=== PATIENT | male | born 1955 | race Caucasian/White ===

== ENCOUNTER 2021-05-05 12:46 | Emergency (ER) | payer OTHER ==
[2021-05-05 13:33] VITALS: TEMP 97.9
--- NOTE | 2021-05-05 14:12 | XR ---
EXAMINATION TYPE: XR ankle complete LT DATE OF EXAM: 05/05/2021 COMPARISON: NONE HISTORY: Pain FINDINGS: Three views of the ankle demonstrate the ankle mortise to be intact and symmetric. The joint spaces are preserved. The osseous structures are intact. Tiny bony density inferior to the medial malleolu s. Small plantar calcaneal spur. Soft tissue swelling laterally. IMPRESSION: 1. Tiny bony density adjacent the medial malleolus is felt to be most likely chronic correlate with p oint tenderness. 2. There appears to be soft tissue edema laterally with no definite acute fracture. Linear density wi thin the soft tissues could be related to a tiny foreign body.
--- NOTE | 2021-05-05 15:59 | ED ---
Lower Extremity Injury HPI - General Chief Complaint: Extremity Injury, Lower Stated Complaint: [facility] - lt ankle injury Time Seen by Provider: 05/05/21 15:27 Source: patient Mode of arrival: ambulatory Limitations: no limitations - History of Present Illness Initial Comments: Patient sustained an injury to the left ankle. He has no weakness. He has no p aresthesias. He has no pain in the knee. He denied his head. He did not lose conscious. He has no other problems. - Related Data Allergies Allergy/AdvReac Type Severity Reaction Status Date / Time Sulfa (Sulfonamide Allergy Unknown Verified 05/05/21 13:33 Antibiotics) Childhood Review of Systems ROS Statement: Those systems with pertinent positive or pertinent negative responses have been documented in the HPI. ROS Other: All systems not noted in ROS Statement are negative. Past Medical History Past Medical History: No Reported History Past Surgical History: No Surgical Hx Reported Past Alcohol Use History: None Reported, Occasional Past Drug Use History: None Reported General Exam Limitations: no limitations General appearance: alert Head exam: Present: atraumatic ENT exam: Present: normal exam Extremities exam: Present: tenderness. Absent: joint swelling Back exam: Present: full ROM Neurological exam: Present: alert, oriented X3 Psychiatric exam: Present: normal affect Skin exam: Present: warm, dry Course Vital Signs 05/05/21 13:30 Temperature 97.9 F Pulse Rate 79 Respiratory 19 Rate Blood Pressure 159/98 O2 Sat by Pulse 99 Oximetry Medical Decision Making - Medical Decision Making Patient presents with a left ankle x-ray. This is no fracture or dislocation. He has intact distal pulses. He is stable for discharge. Disposition Clinical Impression: Ankle sprain Disposition: HOME SELF-CARE Condition: Good Instructions (If sedation given, give patient instructions): Ankle Sprain (ED) Is patient prescribed a controlled substance at d/c from ED?: No Referrals: Nonstaff,Physician [Primary Care Provider] - 1-2 days Eriberto Hoffmann MD [STAFF PHYSICIAN] - 1-2 days
[2021-05-05 16:21] VITALS: BP 136/78; PULSE 80; RESP 18
== END 2021-05-05 16:43 | disposition home or self-care (01) ==
LOC: EC 12:46
DX: S93.402A Sprain of unspecified ligament of left ankle, initial encounter (principal)
CPT/HCPCS: 99283